=== PATIENT | male | born 1955 | race Caucasian/White ===

== ENCOUNTER → 2019-08-31 12:59 | Outpatient (BNVA) | payer MEDICARE, MEDICAID, SELFPAY | PROVIDERS: Family Provider Family Medicine; PCP Family Medicine; Visit Provider Specialist | DX: G40.009 Localization-related (focal) (partial) idiopathic epilepsy and epileptic syndromes with seizures of localized onset, not intractable, without status epilepticus (principal) | CPT/HCPCS: 99213 ==

== ENCOUNTER → 2020-03-05 12:16 | Outpatient (BNVA) | payer MEDICARE, MEDICAID, SELFPAY | PROVIDERS: Family Provider Family Medicine; PCP Family Medicine; Visit Provider Specialist | DX: G40.109 Localization-related (focal) (partial) symptomatic epilepsy and epileptic syndromes with simple partial seizures, not intractable, without status epilepticus (principal) | CPT/HCPCS: 99213 ==

== ENCOUNTER → 2020-08-28 12:18 | Outpatient (BNVA) | payer MEDICARE, MEDICAID, SELFPAY | PROVIDERS: Family Provider Family Medicine; PCP Family Medicine; Visit Provider Specialist | DX: G40.109 Localization-related (focal) (partial) symptomatic epilepsy and epileptic syndromes with simple partial seizures, not intractable, without status epilepticus (principal); F17.210 Nicotine dependence, cigarettes, uncomplicated | CPT/HCPCS: 99213 ==

== ENCOUNTER → 2021-10-22 07:56 | Outpatient (BNVA) | payer MEDICARE, MEDICAID, SELFPAY | PROVIDERS: Family Provider Family Medicine; PCP Family Medicine; Visit Provider Specialist | DX: G40.109 Localization-related (focal) (partial) symptomatic epilepsy and epileptic syndromes with simple partial seizures, not intractable, without status epilepticus (principal); J44.9 Chronic obstructive pulmonary disease, unspecified; R63.4 Abnormal weight loss; Z68.1 Body mass index [BMI] 19.9 or less, adult; F17.210 Nicotine dependence, cigarettes, uncomplicated | CPT/HCPCS: 99213; 99214 ==

== ENCOUNTER 2022-10-24 07:31 | Outpatient (CLI) | payer MEDICARE, MEDICAID, SELFPAY ==
--- NOTE | 2022-10-24 07:43 | CT_ITS ---
WS: [id number] LDCT LUNG CANCER SCREENING TECHNIQUE: Noncontrast CT of the chest with coronal and sagittal reformatted images. CLINICAL INFORMATION: NICOTINE DEPENDENCE, CIGARETTES COMPARISON: None. DLP: 87.40 mGy.cm DIvol: Mean CTDIvol: 1.60 (mGy) All CT scans at [facility] use at least one of these dose optimization techniques: automat ed exposure control; mA and/or kV adjustment per patient size (includes targeted exams where dose is matched to clinical indication); or iterative reconstruction. FINDINGS: Enlarged anterior mediastinal lymph nodes measuring up to 12 mm nonspecific. Normal caliber thoracic aorta. Aortic calcification. Coronary calcification. No axillary lymphadenopathy. Adrenal glands are normal. Irregular spiculated nodule in the RIGHT upper lobe medially and anteriorl y just above the hilum measuring approximately 12 mm. This has a suspicious appearance and recommend further evaluation with PET/CT. Additional spiculated nodule in the LEFT upper lobe posteriorly with central cavitation also has a suspicious appearance measuring 10 mm. Noncalcified nodule LEFT lung apex measuring 7 mm. Fibrotic changes in the lung apices bilaterally wi th subpleural opacities. Noncalcified nodule LEFT upper lobe medially measuring 3 mm. Noncalcified no dules LEFT lower lobe laterally measuring 5 mm and 6 mm. Subsegmental atelectasis in the LEFT lower l obe. Additional solid opacity LEFT lower lobe posteriorly measuring 8 mm. Patchy inflammatory infiltr ates in the RIGHT middle lobe. CT/CT lung screening [id number] IMPRESSION: 1. Numerous bilateral pulmonary nodules the most suspicious in the RIGHT upper lobe anteromedially with a spiculated appearance measuring 12 mm and LEFT uppe r lobe along the fissure measuring 10 mm. 2. Additional subcentimeter nodules the largest in the LEFT lower lobe measuri ng up to 8 mm. 3. Additional indeterminate anterior mediastinal lymphadenopathy measuring 12 to 13 mm. LUNG-RADS: 4B-Suspicious FOLLOW UP: PET/CT recommended
== END 2022-10-24 07:32 | disposition home or self-care (01) ==
PROVIDERS: PCP Family Medicine; Visit Provider Family Medicine
DX: Z12.2 Encounter for screening for malignant neoplasm of respiratory organs (principal); Z87.891 Personal history of nicotine dependence
CPT/HCPCS: 71271

== ENCOUNTER → 2022-11-19 14:09 | Outpatient (BNVA) | payer MEDICARE, MEDICAID, SELFPAY | PROVIDERS: PCP Family Medicine; Visit Provider Specialist | DX: G40.109 Localization-related (focal) (partial) symptomatic epilepsy and epileptic syndromes with simple partial seizures, not intractable, without status epilepticus (principal); F41.9 Anxiety disorder, unspecified; F32.A Depression, unspecified | CPT/HCPCS: 99213 ==

== ENCOUNTER 2023-01-17 05:41 | Outpatient (CLI) | payer MEDICARE, MEDICAID, SELFPAY ==
--- NOTE | 2023-01-17 | PETR_ITS ---
PROCEDURE INFORMATION: Exam: PET/CT Skull Base to Mid-thigh Exam date and time: 01/17/2023 8:59 AM Age: 67 years old Clinical indication: Abnormal findings; Abnormal CT lung screen 01/17/23; Additional info: Abnormal lung screen LABS AND CLINICAL REPORTS: Glucose: 98 mg/dl Treatment strategy for malignancy (PET staging): Initial Staging (PI) TECHNIQUE: Imaging protocol: Following at least four-hour fasting and following the injection of radiopharmaceutical, low dose CT images were obtained. Then, PET images were obtained. Attenuation corrected images were constructed using the CT scan. Fused images of PET and CT were reviewed. The standardized uptake values (SUV) reported below are maximum values within a region of interest, expressed in gm/ml. Exam includes orbital meatal line to mid-thigh. Radiopharmaceutical: 11.31 mCi F-18 FDG (Fluorodeoxyglucose), IV. Time of imaging post radiopharmaceutical administration: 1 hour Injection site: Left AC COMPARISON: CT lung screening [id number] 10/24/2022 7:48 AM and CTA head and neck from 07/11/2014 FINDINGS: Brain: Visualized brain has normal physiologic uptake. Pharynx: No abnormal uptake. Larynx: No abnormal uptake. Lungs, pleura and trachea: There is some low level FDG uptake associated with some scarring at the right lung apex with SUV max 2.1. This area appears relatively unchanged compared to CTA head neck from 07/11/2014. Hypermetabolic 1 cm left upper lobe pulmonary nodule has SUV max 2.8 (image 50). This previously measured up to 8 mm on 10/24/2022. Moderate centrilobular emphysema. Previously noted small area of faint spiculation in the right upper lobe has no associated FDG uptake. Heart: Normal physiologic uptake. Mediastinal space: No abnormal uptake. Liver: No abnormal uptake. Gallbladder and bile ducts: No abnormal uptake. Pancreas: No abnormal uptake. Spleen: No abnormal uptake. Adrenal glands: No abnormal uptake. Kidneys and ureters: Normal physiologic uptake. Stomach and bowel: No abnormal uptake. Vasculature: No abnormal uptake. Lymph nodes: Hypermetabolic 9 mm AP window lymph node has SUV max 3.2 (image 55). Hypermetabolic left hilar lymph node has SUV max 3.0 (image 64). Mildly prominent precarinal lymph node has SUV max 2.6 and measures up to 9 mm (image 56). There are also small calcified mediastinal and hilar lymph nodes. Bones/joints: No abnormal uptake in the visualized axial and appendicular skeleton. Soft tissues: See Lungs, pleura and trachea finding. [id number] IMPRESSION: Hypermetabolic 1 cm left upper lobe pulmonary nodule with FDG avid mediastinal and hilar lymph nodes is highly concerning for primary bronchogenic carcinoma.
== END 2023-01-17 05:42 | disposition home or self-care (01) ==
LOC: RAD 01-19 05:41
PROVIDERS: PCP Family Medicine; Visit Provider Family Medicine
DX: R91.8 Other nonspecific abnormal finding of lung field (principal); R91.1 Solitary pulmonary nodule
CPT/HCPCS: 78815; A9552

== ENCOUNTER → 2023-02-17 16:40 | Outpatient (BNVA) | payer MEDICARE, MEDICAID, SELFPAY | PROVIDERS: PCP Family Medicine; Visit Provider Internal Medicine Pulmonary Disease | DX: R91.8 Other nonspecific abnormal finding of lung field (principal); J44.9 Chronic obstructive pulmonary disease, unspecified; F17.210 Nicotine dependence, cigarettes, uncomplicated; Z86.73 Personal history of transient ischemic attack (TIA), and cerebral infarction without residual deficits | CPT/HCPCS: 36415; 99204 ==

== ENCOUNTER 2023-04-06 07:47 | Outpatient (CLI) | payer MEDICARE, MEDICAID, SELFPAY ==
--- NOTE | 2023-04-06 08:00 | CT_ITS ---
WS: [id number] CT CHEST TECHNIQUE: Noncontrast CT of the chest with coronal and sagittal reformatted images. CLINICAL INFORMATION: F/u pulmonary nodule COMPARISON: PET/CT 01/17/2023. CT lung screening 10/24/2022 DLP: 337.[address] scans at [facility] use at least one of these dose optimization techniques: automated e xposure control; mA and/or kV adjustment per patient size (includes targeted exams where dose is matc hed to clinical indication); or iterative reconstruction. FINDINGS: Previously described 10 mm LEFT upper lobe FDG avid pulmonary nodule demonstrates more cent ral cavitation today but otherwise unchanged in appearance. Previously described prominent mediastina l and hilar lymph nodes are unchanged. Additional subcentimeter scattered nodules are unchanged compared to previous. Subsegmental atelectasis LEFT lower lobe. Moderate chronic emphysematous changes. Aortic calcificatio n. No axillary lymphadenopathy. Adrenal glands are normal. No other significant changes. Fibrosis in the lung apices. IMPRESSION: 1. Previously described 10 mm FDG avid nodule LEFT upper lobe demonstrates more central cavitation t leslye but otherwise unchanged. Recommend continued surveillance with 3-month follow-up. 2. Additional scattered subcentimeter pulmonary nodules are stable. 3. Previously described FDG-avid anterior mediastinal and hilar lymph nodes are stable in appearance . 4. No other significant changes compared to previous.
== END 2023-04-06 07:48 | disposition home or self-care (01) ==
PROVIDERS: PCP Family Medicine; Visit Provider Internal Medicine Pulmonary Disease
DX: R91.1 Solitary pulmonary nodule (principal)
CPT/HCPCS: 71250

== ENCOUNTER → 2023-04-13 08:08 | Outpatient (BNVA) | payer MEDICARE, MEDICAID, SELFPAY | PROVIDERS: PCP Family Medicine; Visit Provider Internal Medicine Pulmonary Disease | DX: J44.9 Chronic obstructive pulmonary disease, unspecified (principal); R91.8 Other nonspecific abnormal finding of lung field; F17.210 Nicotine dependence, cigarettes, uncomplicated | CPT/HCPCS: 99214 ==

== ENCOUNTER 2023-04-29 07:00 | Outpatient (CLI) | payer MEDICARE, MEDICAID, SELFPAY ==
[2023-04-29 07:23] VITALS: PULSE 73; RESP 20; O2SAT 98
[2023-04-29] MEDS: albuterol 2.5 mg/3 mL Neb INHALATION (07:26)
[2023-04-29 07:27] VITALS: PULSE 71
== END 2023-04-29 07:01 | disposition home or self-care (01) ==
PROVIDERS: PCP Family Medicine; Visit Provider Internal Medicine Pulmonary Disease
DX: R91.1 Solitary pulmonary nodule (principal)
CPT/HCPCS: 94060; 94618; 94726; 94729; 99214; J7613

== ENCOUNTER 2023-07-06 07:11 | Outpatient (CLI) | payer MEDICARE, MEDICAID, SELFPAY ==
--- NOTE | 2023-07-06 07:30 | CT_ITS ---
WS: [id number] CT CHEST TECHNIQUE: Noncontrast CT of the chest with coronal and sagittal reformatted images. CLINICAL INFORMATION: 3 month f/u COMPARISON: CT 04/06/2023 and PET/CT 01/17/2023 DLP: 334.[address] scans at [facility] use at least one of these dose optimization techniques: automated e xposure control; mA and/or kV adjustment per patient size (includes targeted exams where dose is matc hed to clinical indication); or iterative reconstruction. FINDINGS: Previously described 10 mm LEFT upper lobe FDG avid pulmonary nodule demonstrates slightly more gem tral cavitation today but otherwise stable compared to 04/06/2023. Previously described prominent mediastinal and hilar lymph nodes are unchanged. Additional subcentime ter scattered nodules are unchanged compared to previous. Fibrosis in the lung apices. Slight subsegmental atelectasis LEFT lower lobe. Moderate chronic emphysematous changes. Aortic calci fication. No axillary lymphadenopathy. Adrenal glands are normal. Tiny esophageal hiatal hernia. No o ther significant changes. IMPRESSION: 1. Previously described 10 mm FDG avid nodule LEFT upper lobe demonstrates slightly more central cav itation today but otherwise unchanged. Recommend 6-month follow-up. 2. Additional scattered subcentimeter pulmonary nodules are stable. 3. Previously described FDG-avid anterior mediastinal and hilar lymph nodes are stable in appearance . 4. No other significant changes compared to previous
== END 2023-07-06 07:12 | disposition home or self-care (01) ==
LOC: RAD 07:11
PROVIDERS: PCP Family Medicine; Visit Provider Internal Medicine Pulmonary Disease
DX: R91.1 Solitary pulmonary nodule (principal); R91.8 Other nonspecific abnormal finding of lung field
CPT/HCPCS: 71250

== ENCOUNTER → 2023-07-13 07:47 | Outpatient (BNVA) | payer MEDICARE, MEDICAID, SELFPAY | PROVIDERS: PCP Family Medicine; Visit Provider Internal Medicine Pulmonary Disease | DX: R91.1 Solitary pulmonary nodule (principal); J43.2 Centrilobular emphysema; J44.9 Chronic obstructive pulmonary disease, unspecified; F17.210 Nicotine dependence, cigarettes, uncomplicated | CPT/HCPCS: 99214 ==

== ENCOUNTER 2023-09-29 08:57 | Outpatient (CLI) | payer MEDICARE, MEDICAID, SELFPAY ==
--- NOTE | 2023-09-29 09:30 | PETR_ITS ---
PROCEDURE INFORMATION: Exam: PET/CT Skull Base to Mid-thigh Exam date and time: 09/29/2023 10:07 AM Age: 68 years old Clinical indication: Abnormal findings; 1. Previously described 10 mm fdg avid nodule left upper lobe demonstrates slightly more central. Cavitation today but otherwise unchanged. Recommend 6-month follow-up. ; Additional info: Lung nodule LABS AND CLINICAL REPORTS: Glucose: 109 mg/dl Treatment strategy for malignancy (PET staging): Initial Staging (PI) TECHNIQUE: Imaging protocol: Following at least four-hour fasting and following the injection of radiopharmaceutical, low dose CT images were obtained. Then, PET images were obtained. Attenuation corrected images were constructed using the CT scan. Fused images of PET and CT were reviewed. The standardized uptake values (SUV) reported below are maximum values within a region of interest, expressed in gm/ml. Exam includes orbital meatal line to mid-thigh. Radiopharmaceutical: 11.73 mCi F-18 FDG (Fluorodeoxyglucose), IV. Time of imaging post radiopharmaceutical administration: 1 hour COMPARISON: 1. [facility] [id number] 01/17/2023 8:[address] head from 12/25/2014 FINDINGS: Brain: Decreased FDG uptake in the left MCA territory, consistent with prior infarct. Pharynx: No abnormal uptake. Larynx: No abnormal uptake. Lungs, pleura and trachea: Increased FDG uptake within the suspicious left upper lobe pulmonary nodule, now with SUV max 5.5, previously 2.8. This has also increased in size, now measuring 1.2 x 1.4 cm, previously 1.0 x 1.0 cm. Similar area of scarring at the right lung apex without increased FDG uptake. Background of emphysema. Heart: Normal physiologic uptake. Mediastinal space: No abnormal uptake. Liver: No abnormal uptake. Gallbladder and bile ducts: No abnormal uptake. Pancreas: No abnormal uptake. Spleen: No abnormal uptake. Adrenal glands: No abnormal uptake. Kidneys and ureters: Normal physiologic uptake. Stomach and bowel: No abnormal uptake. Vasculature: No abnormal uptake. Lymph nodes: Mildly hypermetabolic left hilar lymphadenopathy has SUV max 2.6. Mildly hypermetabolic 1 cm left paratracheal lymph node has SUV max 3.0. Some of the mediastinal and hilar lymph nodes are calcified. Bones/joints: No abnormal uptake in the visualized axial and appendicular skeleton. Soft tissues: Small fat containing left inguinal hernia. [facility] [id number] IMPRESSION: 1. Increased size and FDG uptake within the suspicious left upper lobe pulmonary nodule, again most consistent with primary bronchogenic carcinoma. 2. Mildly hypermetabolic left hilar and mediastinal lymph nodes are indeterminate.
== END 2023-09-29 08:58 | disposition home or self-care (01) ==
LOC: RAD 08:57
PROVIDERS: PCP Family Medicine; Visit Provider Internal Medicine Pulmonary Disease
DX: R91.1 Solitary pulmonary nodule (principal)
CPT/HCPCS: 78815; A9552

== ENCOUNTER → 2023-11-12 08:01 | Outpatient (BNVA) | payer MEDICARE, MEDICAID, SELFPAY | PROVIDERS: PCP Family Medicine; Visit Provider Internal Medicine Pulmonary Disease | DX: R91.1 Solitary pulmonary nodule (principal); J43.2 Centrilobular emphysema; J44.9 Chronic obstructive pulmonary disease, unspecified; F17.210 Nicotine dependence, cigarettes, uncomplicated | CPT/HCPCS: 99214 ==

== ENCOUNTER → 2023-11-25 14:08 | Outpatient (BNVA) | payer MEDICARE, MEDICAID, SELFPAY | PROVIDERS: PCP Family Medicine; Visit Provider Specialist | DX: G40.109 Localization-related (focal) (partial) symptomatic epilepsy and epileptic syndromes with simple partial seizures, not intractable, without status epilepticus (principal); F41.9 Anxiety disorder, unspecified; F32.A Depression, unspecified | CPT/HCPCS: 99213 ==

== ENCOUNTER 2023-12-01 10:14 | Day surgery (SDC) | payer MEDICARE, MEDICAID, SELFPAY ==
[2023-12-01] VITALS (8 sets, daily range): BP systolic 100–123; BP diastolic 49–79; PULSE 70–78; RESP 18; TEMP 36.1–36.3; O2SAT 92–97; BMI 22.3
--- NOTE | 2023-12-01 10:29 | CT_ITS ---
WS: [id number] CT chest ION (PULM ONLY) [id number] HISTORY: For bronchoscopic biopsy TECHNIQUE: Axial imaging per protocol prior to ION. CONTRAST: None DLP: 366.15 mGy COMPARISON: 07/06/2023 Hyperexpanded lungs with emphysema. Biapical pleural thickening. Reidentified is the enlarging spicul ated mass in the LEFT upper lobe which abuts the fissure. Mass is increased in size now measuring 1.8 x 1.8 cm with additional pleural tagging and extensions. Bilateral lower lobe bronchiectasis. CT/CT chest ION (PULM ONLY) [id number] IMPRESSION: Chest CT for ION planning.
--- NOTE | 2023-12-01 11:31 | W.PM.OPSUD ---
Surgery/Procedure H&P Update DATE OF PROCEDURE: December 01, 2023 DATE H&P PERFORMED: 11/12/23 H&P UPDATE INFORMATION: I have reviewed H&P completed within last 30 days, I have examined patient prior to procedure and No changes to prior documentation CHANGES TO PREVIOUS DOCUMENTATION: none PRIMARY INDICATION FOR PROCEDURE: Need tissue diagnosis PET active left upper lobe nodule - Suspicious for primary lung malignancy- PLANNED PROCEDURE: Operation Date: 12/01/23 12:25 Proposed Procedures p Ion Robotic Assisted Bronchoscopy ION 75030, 00275, 39928, 05526, 43128, 31907, 09912, 77991, 42961, 49038, 91730, 67439, 65281, 11377](Not Applicable) - Prakash Burton MD s Ebus(Not Applicable) - Prakash Burton MD
[2023-12-01] MEDS: sodium chloride 0.9% 1,000 ML 30 ML IV (11:35)
--- NOTE | 2023-12-01 12:17 | ANES.PREANE2 ---
Pre-Anesthetic Assessment Height/Weight: Height 1.73 m Weight 66.678 kg Temp Pulse Resp BP Pulse Ox O2 Del Method 97.3 F L 75 18 107/73 97 Room Air 12/01/23 11:17 12/01/23 11:17 12/01/23 11:17 12/01/23 11:17 12/01/23 11:17 12/01/23 11:17 Operation Date: 12/01/23 12:25 Proposed Procedures p Ion Robotic Assisted Bronchoscopy ION 65924, 63065, 57871, 05050, 19964, 33752, 42116, 13415, 69494, 40788, 21818, 04057, 40015, 79805](Not Applicable) - Prakash Burton MD s Ebus(Not Applicable) - Prakash Burton MD Familial anesthetic complications: None Was Beta Shahzad taken within 24 hours: N/A Was Clonidine taken within 24 hours: N/A Last intake: Intake Last Liquid Date 12/01/23 Last Liquid Time 07:30 Last Solid Date 11/30/23 Last Solid Time 18:30 Social Tobacco and No alcohol Exam alert, oriented x 3, clear to auscultation bilaterally and regular rate & rhythm Airway Mallampati: Class III Comments: Comments: Extremely poor dentition, rotting, bottom teeth sharp appearing hatch GI Gastroesophageal Reflux Disease Metabolic Thyroid Disease Neuropsych seizure Anesthetic Plan ASA status: 3 Anesthesia: General Risk of > 500 ml blood loss (7ml/kg in children): No Medications/Allergies Home Medications Medication Instructions Recorded Confirmed Last Taken Type furosemide 20 mg tablet (Lasix) 20 mg PO PRN PRN Edema 08/31/19 12/01/23 11/30/23 History levothyroxine 25 mcg capsule 25 mcg PO DAILY 08/31/19 12/01/23 12/01/23 History simvastatin 40 mg tablet 40 mg PO DAILY 08/31/19 12/01/23 11/30/23 History tramadol 50 mg tablet 50 mg PO Q6H PRN Pain 08/31/19 12/01/23 11/30/23 History pantoprazole 40 mg PO DAILY 11/19/22 12/01/23 11/30/23 History shower chair #1 ea 11/19/22 11/25/23 Unknown Rx albuterol (refill) 90 90 mcg inhalation PRN PRN 02/17/23 11/26/23 Unknown History mcg/actuation aerosol inhaler Shortness Of Breath buspirone 15 mg tablet 15 mg PO BID 02/17/23 11/26/23 11/26/23 History diphenhydramine HCl 25 mg capsule 25 mg PO TID PRN Allergy Symptoms 02/17/23 11/26/23 Unknown History (Allergy (diphenhydramine)) donepezil 5 mg tablet 5 mg PO DAILY 02/17/23 11/26/23 11/26/23 History olanzapine 5 mg tablet (Zyprexa) 5 mg PO DAILY 02/17/23 12/01/23 11/30/23 History umeclidinium 62.5 mcg/actuation 1 inh inhalation DAILY 02/17/23 12/01/23 11/30/23 History blister powder for inhalation (Incruse Ellipta) clopidogrel 75 mg tablet 75 mg PO DAILY 11/26/23 11/26/23 11/25/23 History levetiracetam 500 mg tablet 1,000 mg PO BEDTIME 12/01/23 12/01/23 11/30/23 History triamcinolone acetonide 0.1 % 1 applic topical BID 12/01/23 12/01/23 11/30/23 History topical cream Allergies Allergy/AdvReac Type Severity Reaction Status Date / Time codeine AdvReac nausea Verified 11/26/23 09:02 vomiting Current Medications Generic Name Dose Route Start Last Admin Trade Name Freq PRN Reason Stop Dose Admin Sodium Chloride 1,000 mls @ 30 mls/hr 12/01/23 10:30 12/01/23 11:35 Sodium Chloride 0.9% IV 12/02/23 10:29 30 mls/hr .Q24H ILENE Administration PFSH Anesthesia Family History Other Cancer Hypertension Stroke Denies family history of Diabetes CAD (coronary artery disease) Social History Smoking and tobacco/nicotine status: current every day tobacco/nicotine user (4-6 a day) cigarettes Packs smoked per day: 1.5 Years cigarettes smoked: 55 [ Other cigarette details: Started at age 12] Alcohol intake: current Alcohol intake frequency: 0-2 Drinks per Day Alcohol type: beer Substance/Drug Use: never Data Anesthesia Cardiac Studies: No Data to Display
--- NOTE | 2023-12-01 12:31 | SC_ITS ---
WS: [id number] C-arm fluoroscopy for left upper lobe bronchoscopy, 12/01/2023 Clinical Data: ION Comparison: CT chest, 12/01/2023 Findings: Dr. Bennett biopsied a left upper lobe nodule. The bronchoscope showed the distal tip in the left uppe r lobe. SC/C-arm FL for Bronchoscopy Impression: C ARM fluoroscopy guidance for left upper lobe bronchoscopy.
[2023-12-01] MEDS: lidocaine 1% INJ 10 mL (per mL) XX (13:26)
[2023-12-01 14:41] LABS: Cyto Order Verification No Order
--- NOTE | 2023-12-01 14:45 | P.OP_ITS ---
Operative Report Date of procedure: December 01, 2023 Pre-op diagnosis: Left upper lobe PET active lesion suspicious for malignancy Post-op diagnosis: Same Surgeon: Prakash Burton MD Brief History: Mr. Waldemar Barrera is a 68-year-old male with past medical history of COPD, anxiety, CVA with right-sided paresis and slurry speech comes for eval and treat lung mass per Dr. Lovell. He comes to clinic with his son.smoked 1 pack a day for > 40 years and currently smoking less than a pack As part of lung cancer screening protocol patient had a low-dose CT 10/24/2022 which showed numerous bilateral pulmonary nodules most suspicious RUL anterior medially with spiculated appearance measuring 12 mm in left upper lobe along the fissure measuring 10 mm. There were additional subcentimeter nodules largest left lower lobe measuring 8 mm. Indeterminate anterior mediastinal lymphadenopathy measuring 12 to 13 mm. Patient had a PET CT scan 01/17/2023- 1.low-level FDG in right lung apex with SUV 2.1 consistent with scarring. This area is unchanged when compared to CT head and neck 07/11/2014. 2. Cavitary left upper lobe 1 cm hypermetabolic 1 cm nodule SUV max 2.8.- Reported suspicious for malignancy but uptake is not significant 3. FDG avid mediastinal and hilar lymph nodes. AP window lymph node SUV max 3.2 and left hilar lymph node SUV max 3. nodify blood test showed reduced risk. [address] scan 04/06/23 ?Previously described 10 mm mildly FDG avid nodule LEFT upper lobe demonstrates more central cavitation today but otherwise unchanged. Recommend continued surveillance with 3-month follow-up. Previously described FDG-avid anterior mediastinal and hilar lymph nodes are stable in appearance. A 3-month follow-up CT chest 07/06/2023-unchanged 10 mm left upper lobe lesion with more central cavitation. Repeated a 3-month follow-up PET/CT on 09/28/2023-which showed increased the size and FDG uptake within the left upper lobe pulmonary nodule was consistent with primary bronchogenic carcinoma. Size increased from 1.0 x 1.0 cm to 1.2 x 1.4 cm with SUV 5.5. (Increased from 2.8 in December 2022); there is mild hypermetabolic left hilar lymphadenopathy with SUV 2.6. 1 cm left paratracheal lymph node SUV max 3.0 I have discussed with patient and his son that given significant smoking history-the lesion in the lung is highly suspicious for malignancy and we need tissue diagnosis to confirm. For that I have given the option of going for robotic navigational guided biopsy of suspicious lesion as well as endobronchial ultrasound-guided surveillance of hilar/mediastinal lymph nodes. I have explained about the complications like pneumothorax given her significant background emphysema which may require chest tube placement. Bleeding is another possibility, majority of times the bleeding is controlled with instillation of cold saline or diluted epinephrine but extremely rarely to bleeding may not be well controlled, which may result in prolonged intubation and possibly bronchial don placement to protect nonbleeding airway, convalescence in ICU, may even need IR embolization. There is also a very small chance of missing the lesion due to technical factors which may result in repeating the procedure or follow-up with surveillance CT scans. These are rare possibilities with current software combined with using live radial ultrasound,.. Patient verbalized understanding for the indication of the procedure, nature of the procedure, alternatives, complications, benefits and agreed to proceed. Instructed patient to stop clopidogrel 5 days prior to the procedure. Today comes for robotic navigational bronchoscopy guided biopsy of left upper lobe cavitary lesion as well as EBUS guided hilar/mediastinal lymph node biopsies. Procedure: -Dx Bronchoscope w/Washings or airway inspection -Dx Bronchoscope w/BAL -Bronch with computer image guided Navigational Bronchoscopy -Bronchoscopy w/Transbronchial lung biopsy(s), single lobe using forceps -Bronchoscopy w/Transbronchial needle aspiration biopsy(s), tracheal, main stem, and/or lobar bronchus -Bronchoscopy w/ therapeutic aspiration of the tracheobronchial tree (clearance of airway secretions, removal of mucus plugs) -EBUS Sampling 1/2 nodes ION ROBOTIC BRONCHOSCOPY NOTE Pre-procedure Verification: Prior to the procedure, the patient's identity was verified by full name, date of and medical record number. The patient's identity was verified on all pertinent medical records. Also prior to the procedure, a History and Physical was performed, and patient medications, allergies and sensitivities were reviewed. The patient's tolerance of previous anesthesia was reviewed. The risks and benefits of the procedure and the sedation options and risks were discussed with the patient. All questions were answered and informed consent was obtained. Planning: Using the [employer] planning software, this patient?s preoperative CT was loaded onto the system and then target and pathway mapping was performed. This was all done prior to the start of the procedure and appropriate plan verified prior to induction. Anesthesia: General anesthesia was used. Please see anesthesiology documentation for full details. A modified BAM/Marques Protocol was used for robotic bronchoscopy with rapid Intubation, recruitment maneuvers, Tidal Volume around 8-10mL/Kg [place] Body Weight, and PEEP 10-15 as feasible. Time-Out: Prior to the start of the procedure, the patient's identification, proposed procedure, accurate signed consent, correctly labeled images and recor ds, and need for prophylactic antibiotics were verified by the physician, the nurse, the anesthesiologist and the front desk team member in the procedure room. Procedural Details: After obtaining informed consent, The procedure was accomplished without difficulty. The patient tolerated the procedure well. Patient preparation: Patient was placed under general anesthesia. An 8.5 ETT was placed for bronchoscopy. The larynx and vocal cords were not visualized. The trachea was anatomically normal The right sided was anatomically normal without endobronchial lesions. There were significant thin clear secretions. The left sided airway was anatomically normal without endobronchial lesions. There were significant thin clear secretions Therapeutic aspiration of the airways, initial encounter, was performed at the right bronchial tree. The therapeutic bronchoscope was then removed. We communicated with the anesthesia team to ensure proper ventilator settings for optimal peripheral bronchoscopy. FIRST LOBE: The Ion Shape Sensing Robotic Assisted Bronchoscope was brought into the field and the process of registration was carried out. The guide catheter was used for peripheral navigational bronchoscopy using the planned pathway into the posterior apical segment of left upper lobe and was able to be wedged peripherally at a distance of 1 mm away from the target. We locked the catheter position in, and removed the vision probe. We introduced the radial EBUS probe and obtained an radial vague concentric signal [id number] image location relative to the lesion in the same lobe. We confirmed our location with a fluoroscopic C-arm. We then removed the R-EBUS and introduced the biopsy tools starting with a 23 G ION bronchoscopic peripheral needle for Transbronchial Needle Aspirations (TBNA). The first pass was not sent for Rapid On Site Evaluation (MK) as we do not have onsite pathology. We continued more biopsies in a cloud format. Transbronchial biopsies of left upper lobe lesion were using forceps. Transbronchial biopsy technique was selected because the sampling site was not visible endoscopically. The sampling device penetrated the full thickness of the bronchial wall to obtain the biopsy of lung tissue. 7 biopsy passes were performed, and the same number of biopsy samples were obtained. Finally, we used a 20 cc syringe filled with normal saline connected to the proximal portion of the ION catheter and slowly injected; the return was cloudy and blood tinged 13 cc . At this point and after confirming the absence of bleeding, we removed the channel. Minimal blood residue was cleared from the airway and the peripheral navigation portion of the procedure was concluded. Empiric cold saline was instilled through the catheter and tamponade held for 1-5 minutes. At this point and after confirming the absence of bleeding, we removed the channel. Minimal blood residue was cleared from the airway and the peripheral navigation portion of the procedure was concluded. Empiric cold saline was instilled through the catheter and tamponade held for 1-5 minutes. Next, we turned our attention to linear EBUS staging. An EBUS exam was performed: Identified a large hypoechoic mass in station station 4L, station 7,. Using 21 G lower lobe [id number] were taken from all the stations; there was some evidence of bleeding which is controlled with instillation of cold saline. Rapid onsite path evaluation (MK) was not utilized for this case. Following completion of all diagnostic and therapeutic procedures, hemostasis was verified. The scope was removed and procedure concluded. Samples: A. Left upper lobe lesion 1. Total of 6 passes were made using needle aspiration ; we do not have onsite pathology and so all the material was placed in formalin for histopathology 2. Targeting the same area 6 passes were made using forceps ; we do not have onsite pathology and so all the material was placed in formalin for histopathology 3. Bronchoscope was wedged at the entrance of the posterior apical segment of left upper lobe, 20 mL of saline was instilled and returned 13 mL of bronchoalveolar lavage . The fluid was mixed with blood and specks of tissue. Samples for cell count, cytology, cultures B. EBUS guided Fine-needle aspiration biopsies were taken from station station 7 and station 4L 1. Total of 3 passes were made using needle aspiration from station 7; all the material was placed in formalin and sent for histopathology 2. Total of 3 passes were made using needle aspiration from station 4L; all the material was placed in formalin and sent for histopathology; Complications: None.The patient was extubated and brought to the PACU in stable condition. Disposition: Patient can be discharged home in stable condition. Pt and her son are aware that I am going to call them to update final biopsy results once available.
--- NOTE | 2023-12-01 14:48 | XR_ITS ---
WS: [id number] CHEST XRAY TECHNIQUE: Portable chest. CLINICAL INFORMATION: POST ION COMPARISON: None. FINDINGS: Heart: Normal cardiac silhouette. Aortic calcification. Lungs: Chronic emphysematous changes. No acute pulmonary infiltrates. No pneumothorax. Fibrosis in th e lung apices. LEFT upper lobe nodule better visualized on the prior CT Bones: Osteopenia. XR/XR chest 1V portable [id number] IMPRESSION: No pneumothorax. Normal for post bronchoscopy purposes.
[2023-12-01 15:03] LABS: Apprearance, Bronch Wash Hazy (CLEAR); Color, Bronc Wash Slight Pink
--- NOTE | 2023-12-01 15:10 | ANE.PACU2 ---
Inpatient post-anesthesia follow up: Airway intact: Yes Vital signs: Temperature 97 F Pulse Rate 71 Respiratory Rate 18 Blood Pressure 123/67 Pulse Oximetry 93 Oxygen Delivery Me thod Room Air Oxygen Flow Rate Fraction of Inspir ed Oxygen Hydration adequate: Yes Nausea and vomiting: No Pain level: 1 Mental status: Baseline
[2023-12-01 15:33] LABS: Total Cells Counted Bronch 200
[2023-12-01 15:34] LABS: PATH Referral Yes
== END 2023-12-01 15:58 | disposition home or self-care (01) ==
PROVIDERS: PCP Family Medicine; Visit Provider Internal Medicine Pulmonary Disease
PROC: 0BJ08ZZ Inspection of Tracheobronchial Tree, Via Natural or Artificial Opening Endoscopic (ICD-10-PCS; CPT 31622; principal; 2023-12-01 12:05)
PROC: BB4BZZZ Ultrasonography of Pleura (ICD-10-PCS; 2023-12-01 12:05)
DX: R91.8 Other nonspecific abnormal finding of lung field (principal); J43.2 Centrilobular emphysema; F41.9 Anxiety disorder, unspecified; I69.351 Hemiplegia and hemiparesis following cerebral infarction affecting right dominant side; K21.9 Gastro-esophageal reflux disease without esophagitis; F17.210 Nicotine dependence, cigarettes, uncomplicated
CPT/HCPCS: 31624; 31627; 31628; 31629; 31645; 31652; 71045; 71250; 76000; 80503; 87070; 87205; 88305; 89050; J1100; J2405; J2704; J3010; J3490; J7030

== ENCOUNTER 2023-12-17 13:56 | Oncology outpatient (recurring) (ONCR) | payer MEDICARE, MEDICAID, SELFPAY ==
--- NOTE | 2023-12-17 14:52 | N.ONRAD NP_ITS ---
Radiation Oncology New Patient Visit Patient: Waldemar Barrera MR#: [id number] : 1955 Age: 68 Sex: Male Dictated by: Dr. Ale Bennett Date of Service: 12/17/2023 Referring Physician(s) : Dr. Burton Diagnosis: Solitary pulmonary nodule biopsy nonspecific Radiotherapy to date: Summary > No prior radiation therapy. Chief Complaint / History of Present Illness: Patient is 68-year-old gentleman with significant COPD who has been undergoing screening for approximately a year. He had his first CT screening in September 2022. His initial screening was in September 2022. The results of the scan showed numerous bilateral pulmonary nodules. The most suspicious was a 12 mm in the right upper lobe and the second most suspicious was a 10 mm in the left upper lobe. He also had indeterminate mediastinal adenopathy. He underwent a PET scan in December 2022. The PET scan showed a 1 cm left upper lobe nodule with SUV uptake significant for malignancy no other areas were noted to have any uptake. This was followed with an additional CT scan in March 2023. This showed a 10 mm left upper lobe nodule. It appeared to have a little more cavitation. Everything else was stable. Additional CT was done in June. This showed the 10 mm left upper lobe with slightly more cavitation and no other changes. In September 2023 he had another PET scan which showed increased size and uptake in the left upper lobe nodule. It now had an SUV of 5.5 where previously had been 2.8. It also had increased in size from a 10 mm to a 12 x 14 mm. These changes prompted a biopsy which was done in November of this year. The biopsy unfortunately was nondiagnostic. There was concern about trying to do additional biopsies with the risk of pneumothorax and patient is significantly compromised with COPD. He is here today to discuss the possible options available. Current Medications: Allergies: Codeine causes nausea and vomiting Medical History: COPD, anxiety, CVA with right-sided paresis, slurred speech, continued tobacco use, PFT FEV1 1.49 L no history of collagen vascular disease. No previous radiation therapy. Surgical History: Family History: He does have family history of cancer and stroke Social History: He continues to smoke every day. He has no alcohol intake. Current Complaints / Review of Systems: . He is currently without complaints Vital Signs: Performed on 12/17/2023 2:13 PM BMI - 22.199 kg/m2, Height - 68 in, Weight - 146 lbs, Temperature - 97.4 f, Pulse - 81 /min, Respiration - 16 /min, O2 Sat - 97 %, Pain - 0, Fatigue - 0 and BP - 123/ 76 mm(hg). Physical Exam: General: Patient is in no apparent distress. He is accompanied by his son. HEENT: Normocephalic atraumatic. Pupils are equal sclera clear, extraocular muscles intact. The right side of his face has a noticeable droop. His speech is slurred and often his words are not consistent with what he is trying to say. Pulmonary: Respiratory rate is regular nonlabored Cardiovascular: Regular rate and rhythm Abdomen: Patient is fairly thin with minimal adipose tissue Extremities: No obvious gross edema is noted Skin: Warm and dry without bruising Neurological: He has a obvious right sided drooping of his face. He otherwise also has a slurred speech. He is alert and oriented. He is able to walk. Psych: Affect appropriate for current situation Performance Status: 80 Pathology: Lab: Imaging: See HPI Impression: Solitary pulmonary nodule in a patient with significant COPD Plan: I reviewed with the patient the findings on his PET scan and how the PET scan is a metabolic scan. It is shown a change in the uptake which corresponds with activity. We talked about how his mass is still very small at 1.2 to 1.4 cm in size. I reviewed with him the danger of additional biopsies with his COPD. We discussed how the typical course for most patients when they have small lung cancers is to undergo stereotactic radiosurgery and then have repeat scans down the line. As other lesions show up additional therapy can be given. We talked about the simulation process. We reviewed the daily treatment regiment of 4 treatments over a course of a week. We discussed the risks and side effects both acute and long-term. We talked about how we do not have an actual tissue biopsy but secondary to the risk of additional biopsies we often will proceed with treatment with the understanding that the PET scan has shown as an increase in activity which is consistent with malignancy. Both he and his son verbalized understanding of this. I offered to them a repeat scan in 3 months or proceeding with treatment at this time. At this point they will consider the options. All of their questions were answered. They will call next week and let us know what they would like to do. Signed by: 12/17/2023 2:51:15 PM <<Signature on File>> Time spent with patient:45 CPT Code: CPT Code:
== END 2023-12-25 23:59 | disposition home or self-care (01) ==
PROVIDERS: PCP Family Medicine; Visit Provider Radiology Radiation Oncology
DX: R91.8 Other nonspecific abnormal finding of lung field (principal)
CPT/HCPCS: 99205

== ENCOUNTER 2024-03-24 08:12 | Oncology outpatient (recurring) (ONCR) | payer MEDICARE, MEDICAID, SELFPAY ==
--- NOTE | 2024-03-10 07:30 | CT_ITS ---
WS: [id number] CT chest w con* [id number] HISTORY: repeat ct, no tx, history of lung cancer. TECHNIQUE: Axial imaging performed through the thorax. Coronal and sagittal reformats are submitted. All CT scans at [facility] use at least one of these dose optimization techniques: automated exposure control; mA and/or kV adjustment per patient size (includes targeted exams where dose is mat ched to clinical indication); or iterative reconstruction. CONTRAST: Omnipaque 350; 100 mL IV. DLP: 345.52 mGy.cm COMPARISON: 12/01/2023, 07/06/2023, PET/CT 09/29/2023 Lungs and central airway: Known pulmonary neoplasm in the LEFT upper lobe abuts the fissure has sligh tly increased in size. There is a low-attenuation mass with central necrosis measuring 2.2 x 2.4 x 2. 6 cm. Mass continues to increase in size. There is mild interstitial extension from the known neoplas m. No new additional nodules are identified. Bronchiectasis in the lower lung cazares, LEFT greater th an RIGHT. Bronchial wall thickening extending into the lower lobes. Pleura: Normal. No pleural effusion. Heart and pericardium: Normal size heart with no pericardial effusion. Mediastinum and didi: Mediastinal and hilar lymph nodes are mildly enlarged. These lymph nodes were i ndeterminate on the most recent PET/CT. Subcarinal lymph node is 1.6 cm which appears slightly more p rominent than on prior studies. There is additional increasing soft tissue at the LEFT hilum which is suspicious for metastatic adenopathy. The precarinal and paratracheal lymph nodes not changed. Vessels: Mild atherosclerosis aorta. No aneurysm. Normal size pulmonary artery. Chest wall and lower neck: No soft tissue masses. Upper abdomen: Small hiatal hernia. No adrenal mass. Visualized liver is negative. Osseous structures: No destructive process. CT/CT chest w con* [id number] IMPRESSION: 1. Slight increase in size of the known LEFT upper lobe pulmonary neoplasm now measuring 2.2 x 2.4 x 2.6 cm. 2. Slightly more prominent subcarinal and LEFT hilar lymph nodes. Metastatic d isease is not excluded. Mildly hyperbolic lymph nodes were previously described at the LEFT hilum by PET/CT. 3. Chronic emphysema with bilateral lower lobe bronchiectasis and bronchial th ickening.
[2024-03-10 08:05] LABS: Blood Urea Nitrogen 5 mg/dL (8-23); Glomerular Filtration Rate 111.5 mL/min (90-130)
[2024-03-10] MEDS: iohexol 350 mg/mL 500 mL Btl (per mL) IV (08:20)
--- NOTE | 2024-03-14 09:51 | ONCRAD EPV_ITS ---
Radiation Oncology Established Patient Visit Patient: Waldemar Barrera [id number] : 1955 Age: 68 Sex: Male> Dictated by: Dr. Ale Bennett Date of Service: 03/14/2024 Referring Physician(s) : Diagnosis: Non-small cell carcinoma of the lung Radiotherapy to Date: None today Current History: Patient returns today for the results of his CT scan. The mass in his lung had gone from 1.8 x 1.8 cm to 2.4 x 2.6 cm. He had no changes in respiratory status or other new issues Current Medications: Allergies: Current Complaints / Review of Systems: . Vital Signs: Performed on 03/14/2024 8:24 AM BMI - 22.017 kg/m2, Height - 68 in, Weight - 144.8 lbs, Temperature - 96.6 f, Pulse - 80 /min, Respiration - 16 /min, O2 Sat - 97 %, Pain - 0, Fatigue - 0 and BP - 112/ 72 mm(hg). Performance Status: 90 Lab: None pending. Pathology: Imaging: See HPI Impression: Non-small cell carcinoma of the lung in the left upper lobe Plan: I reviewed with the patient and his son the changes on the recent scan. We talked about how no new abnormalities were noted in terms of malignancy. We reviewed the typical course of treatment with 4 treatments over 1 to 2 weeks. We talked about the risks and side effects both acute and long-term as well as the planning process. At this point the patient would like to proceed with treatment. Will get him scheduled for simulation and begin his treatment shortly thereafter. Signed by: 03/14/2024 9:49:54 AM <<Signature on File>> Time spent with patient:20 CPT Code: CPT Code:
== END 2024-03-24 23:59 | disposition home or self-care (01) ==
PROVIDERS: Radiology Diagnostic Radiology; PCP Family Medicine; Visit Provider Radiology Radiation Oncology
DX: Z51.0 Encounter for antineoplastic radiation therapy (principal); C34.12 Malignant neoplasm of upper lobe, left bronchus or lung
CPT/HCPCS: 71260; 77300; 77301; 77334; 77338; 77373; 77470; 82565; 84520; 99024; Q9967

== ENCOUNTER 2024-03-31 08:10 | Oncology outpatient (recurring) (ONCR) | payer MEDICARE, MEDICAID, SELFPAY ==
--- NOTE | 2024-03-31 11:20 | N.ONRD TS_ITS ---
Radiation Oncology Treatment Summary Patient: Bruce>Radha MR#: [id number] : 1955> Age: 68> Sex: Male Dictated by: Dr. Ale Bennett Date of Service: 03/31/2024 Referring Physician(s) : Diagnosis: C34.92 - Malignant neoplasm of unspecified part of left bronchus or lung, Diagnosed 03/14/2024 (Active) Radiotherapy to Date: Course: L lung, Treatment Site: LT Lung 48Gy, Ref. ID: [id number], Energy: 6X, Dose/Fx (cGy): 1,200, #Fx: 4 / 4, Dose Correction (cGy): 0,Total Dose Delivered (cGy): 4,800, Start Date: 03/22/2024, End Date: 03/31/2024, Elapsed Days: 9 Clinical Summary: The patient tolerated RT well. He feels like he has had a little more fatigue than previously. He otherwise notes no additional changes Plan: End of treatment today. Continue on the above medication until the skin reaction resolves. Follow up in one month. Signed by: Dr. Ale Bennett>03/31/2024 11:18:40 AM <<Signature on File>>
== END 2024-04-25 23:59 | disposition home or self-care (01) ==
PROVIDERS: PCP Family Medicine; Visit Provider Radiology Radiation Oncology
DX: Z51.0 Encounter for antineoplastic radiation therapy (principal); C34.12 Malignant neoplasm of upper lobe, left bronchus or lung
CPT/HCPCS: 77336; 77373; 99024

== ENCOUNTER 2024-05-05 08:15 | Oncology outpatient (recurring) (ONCR) | payer MEDICARE, MEDICAID, SELFPAY ==
--- NOTE | 2024-05-05 08:52 | ONCRAD EPV_ITS ---
Radiation Oncology Established Patient Visit Patient: Bruce Medeiros [id number] : 1955> Age: 68> Sex: Male> Dictated by: Dr. Ale Bennett Date of Service: 05/05/2024 Referring Physician(s) : Diagnosis: C34.92 - Malignant neoplasm of unspecified part of left bronchus or lung, Diagnosed 03/14/2024 (Active) Patient returns today for his 1 month follow-up after having undergone SBRT to the left upper lobe mass. Subjectively he is in good spirits. He has good appetite. He has occasional pain which just last for a minute or 2 the left anterior chest. There is no pain with palpation. Does not happen every day. Seems like is very sporadic. He otherwise has noticed no problems or changes. Respiratory status remains good. He is getting around well. His fatigue level remained stable. Radiotherapy to Date: Course: L lung, Treatment Site: LT Lung 48Gy, Ref. ID: [id number], Energy: 6X, Dose/Fx (cGy): 1,200, #Fx: 4 / 4, Dose Correction (cGy): 0, Total Dose Delivered (cGy): 4,800, Start Date: 03/22/2024, End Date: 03/31/2024, Elapsed Days: 9 Current History: Current Medications: Allergies: Current Complaints / Review of Systems: . Vital Signs: Performed on 05/05/2024 8:31 AM BMI - 22.412 kg/m2, Height - 68 in, Weight - 147.4 lbs, Temperature - 96.7 f, Pulse - 75 /min, Respiration - 18 /min, O2 Sat - 98 %, Pain - 3, Fatigue - 0 and BP - 96/ 57 mm(hg)(/low). Physical Exam: General: Alert and oriented x 3. No acute distress. HEENT: Normocephalic, atraumatic. Extraocular Movements Intact: Pupils Equal, Round, Reactive to Light, sclera clear. LUNGS: Respiratory rate is regular and nonlabored. HEART: Regular rate and rhythm, Performance Status: 90 Lab: None pending. Pathology: Primary, c34.92 - malignant neoplasm of unspecified part of left bronchus or lung, Diagnosed 03/14/2024 (active) . Imaging: See HPI Impression: Left upper lobe mass consistent with non-small cell lung cancer Plan: At this point he is to tolerated the SBRT quite well. We talked about follow-up at this point and we will see if we can get him scheduled for a PET scan in the next 8 weeks. After that we will schedule a CT scan in 6 months. I have told him since they live so remotely and his son has to leave work to bring him that we can call him with those results. His son takes all of his phone calls which should be easy to get through to him during the workday. If they have any questions or issues that are encouraged to call. After the CT scan in 8 months I would order an additional scan which would be about a year from now and have him follow-up in person at that time. Signed by: 05/05/2024 8:51:22 AM <<Signature on File>> Time spent with patient: 15 CPT Code: CPT Code:
== END 2024-05-26 23:59 | disposition home or self-care (01) ==
PROVIDERS: PCP Family Medicine; Visit Provider Radiology Radiation Oncology
DX: Z08 Encounter for follow-up examination after completed treatment for malignant neoplasm (principal); C34.12 Malignant neoplasm of upper lobe, left bronchus or lung; Z92.3 Personal history of irradiation
CPT/HCPCS: 99024

== ENCOUNTER 2024-07-15 07:44 | Oncology outpatient (recurring) (ONCR) | payer MEDICARE, MEDICAID, SELFPAY ==
--- NOTE | 2024-07-15 08:00 | PETR_ITS ---
PROCEDURE INFORMATION: Exam: PET/CT Skull Base to Mid-thigh Exam date and time: 07/15/2024 9:28 AM Age: 69 years old Clinical indication: Condition or disease; Primary cancer: Lung cancer; Prior surgery; Surgery date: 1-6 months; Surgery type: Sbrt left lung; Additional info: S/P sbrt to L lung LABS AND CLINICAL REPORTS: Glucose: 118 mg/dl Treatment strategy for malignancy (PET staging): Restaging (PS) TECHNIQUE: Imaging protocol: Following at least four-hour fasting and following the injection of radiopharmaceutical, low dose CT images were obtained. Then, PET images were obtained. Attenuation corrected images were constructed using the CT scan. Fused images of PET and CT were reviewed. The standardized uptake values (SUV) reported below are maximum values within a region of interest, expressed in gm/ml. Exam includes orbital meatal line to mid-thigh. SUV normalization method: BodyWeight Radiopharmaceutical: 10.75 mCi F-18 FDG (Fluorodeoxyglucose), IV. Time of imaging post radiopharmaceutical administration: 47 minutes Injection site: left ac COMPARISON: 1. CT chest w con* [id number] 03/10/2024 8:11 AM 2. 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 Visualized brain has otherwise normal physiologic uptake. Pharynx: No abnormal uptake. Larynx: No abnormal uptake. Lungs, pleura and trachea: Upper lung predominant emphysematous change. Posterior left upper lobe nodule measures 1 cm on axial image 100 and shows SUV max 2.8, previously 2.4 cm in February 2024. There is also increased surrounding reticulation with low-level FDG uptake extending anteriorly just superolateral to the aortic arch, suspect radiation treatment change. Stable ggtmy-awidung-isny-left apical pleural-parenchymal scarring. Stable non FDG avid left basilar nodules, index measuring 7 x 4 mm on axial image 151. Heart: Normal physiologic uptake. Coronary arteries: Moderate coronary artery calcification. Mediastinal space: No abnormal uptake. Esophagus: Diffuse FDG uptake along the esophagus without underlying CT abnormality. Liver: No abnormal uptake. Gallbladder and biliary ducts: No abnormal uptake. Pancreas: No abnormal uptake. Spleen: No abnormal uptake. Adrenal glands: Left adrenal FDG uptake shows SUV max 4.[address] abnormality. Unremarkable right adrenal gland. Kidneys and ureters: Normal physiologic uptake. Stomach and bowel: Focal nodular soft tissue density thickening at the proximal hepatic flexure measures approximately 2 cm on axial image 178 with SUV max 14.4. Reproductive: Mild prostatomegaly. Vasculature: No abnormal uptake. Moderate systemic atherosclerotic calcification without aortic aneurysm. Lymph nodes: Prominent mediastinal and fxcs-vfykeoa-najn-right hilar lymph nodes with FDG uptake show interval slight decrease in size, stable from September 2023 PET-CT, with index subcarinal node measuring 1.4 cm in the short axis, 1.6 cm in February 2024 and 1.4 cm in September 2023. Increased FDG uptake with AP window node measuring 1.2 cm in the short axis on axial image 106 showing SUV max 7.4, nonmeasurable right hilar node showing SUV max 3.8 on axial image 112, and left hilar node showing SUV max 4.7 on axial image 119. Calcified mediastinal and bilateral hilar lymph nodes. Skeleton: No abnormal uptake in the visualized axial and appendicular skeleton. Soft tissues: Low-level lateral left 3rd and 4th intercostal FDG uptake suspected to represent postradiation change versus strain. Small fat containing umbilical and left inguinal hernias. METRICS: Mediastinal blood pool: SUV mean 2.2 Liver uptake: SUV mean 2.8 PET/PET skull to thigh SUBS [id number] IMPRESSION: 1. Compared to February 2024, decreased size left upper lobe nodule now measuring 1 cm with low-level FDG uptake. 2. Slight interval decreased size mediastinal and hilar lymphadenopathy, stable compared to September 2023, with increased FDG uptake. Although metastatic disease is a concern, could also be reactive/granulomatous. 3. Left adrenal FDG uptake without discrete underlying CT abnormality. This could represent hyperplasia, metastasis not entirely excluded. 4. Focal nodular soft tissue density thickening of the proximal hepatic flexure with avid FDG uptake suspicious for malignancy. Recommend colonoscopy.
== END 2024-07-26 23:59 | disposition home or self-care (01) ==
LOC: RAD 07:55 → ONCMED 09:32
PROVIDERS: PCP Family Medicine; Visit Provider Radiology Radiation Oncology
DX: R91.1 Solitary pulmonary nodule (principal); C34.90 Malignant neoplasm of unspecified part of unspecified bronchus or lung; R93.3 Abnormal findings on diagnostic imaging of other parts of digestive tract; E27.9 Disorder of adrenal gland, unspecified; R59.0 Localized enlarged lymph nodes; Z53.9 Procedure and treatment not carried out, unspecified reason
CPT/HCPCS: 78815; A9552

== ENCOUNTER 2024-11-21 11:06 | Outpatient (CLI) | payer MEDICARE, MEDICAID, SELFPAY ==
--- NOTE | 2024-11-21 11:12 | XRR_ITS ---
PROCEDURE INFORMATION: Exam: XR Right Knee Exam date and time: 11/21/2024 11:32 AM Age: 69 years old Clinical indication: Pain; Knee; Bilateral; Additional info: Knee pain TECHNIQUE: Imaging protocol: Radiologic exam of the right knee. Views: 3 views. COMPARISON: No relevant prior studies available. FINDINGS: Bones/joints: Normal. Soft tissues: Normal. XR/XR knee RT 3V* [id number] IMPRESSION: No acute findings.
--- NOTE | 2024-11-21 11:12 | XRR_ITS ---
PROCEDURE INFORMATION: Exam: XR Left Knee Exam date and time: 11/21/2024 11:32 AM Age: 69 years old Clinical indication: Pain; Knee; Bilateral; Additional info: Knee pain TECHNIQUE: Imaging protocol: Radiologic exam of the left knee. Views: 3 views. COMPARISON: No relevant prior studies available. FINDINGS: Bones/joints: Normal. Soft tissues: Normal. XR/XR knee LT 3V* [id number] IMPRESSION: No acute findings.
== END 2024-11-21 11:07 | disposition home or self-care (01) ==
LOC: RAD 11:09
PROVIDERS: PCP Family Medicine; Visit Provider Family Medicine
DX: M25.569 Pain in unspecified knee (principal)
CPT/HCPCS: 73562

== ENCOUNTER → 2024-11-30 15:09 | Outpatient (BNVA) | payer MEDICARE, MEDICAID, SELFPAY | PROVIDERS: PCP Family Medicine; Visit Provider Specialist | DX: G40.109 Localization-related (focal) (partial) symptomatic epilepsy and epileptic syndromes with simple partial seizures, not intractable, without status epilepticus (principal); F41.9 Anxiety disorder, unspecified; F32.A Depression, unspecified | CPT/HCPCS: 99214 ==

== ENCOUNTER → 2024-12-05 07:53 | Outpatient (BNVA) | payer MEDICARE, MEDICAID, SELFPAY | PROVIDERS: PCP Family Medicine; Visit Provider Orthopaedic Surgery | DX: M25.561 Pain in right knee (principal); M25.562 Pain in left knee; G89.29 Other chronic pain | CPT/HCPCS: 99204 ==

== ENCOUNTER 2024-12-26 08:12 | Outpatient (RCR) | payer MEDICARE, MEDICAID, SELFPAY | END 2025-01-16 09:32 | disposition home or self-care (01) | LOC: SPT 08:12 | PROVIDERS: Visit Provider Orthopaedic Surgery | DX: M25.561 Pain in right knee (principal); M25.562 Pain in left knee | CPT/HCPCS: 97110; 97161; 97530 ==

== ENCOUNTER → 2025-01-16 10:35 | Outpatient (BNVA) | payer MEDICARE, MEDICAID, SELFPAY | PROVIDERS: PCP Specialist; Visit Provider Orthopaedic Surgery | DX: M79.604 Pain in right leg (principal); M79.605 Pain in left leg | CPT/HCPCS: 99213 ==

== ENCOUNTER 2025-01-30 07:36 | Outpatient (CLI) | payer MEDICARE, MEDICAID, SELFPAY ==
--- NOTE | 2025-01-30 08:15 | CTR_ITS ---
PROCEDURE INFORMATION: Exam: CT Chest With Contrast; Diagnostic Exam date and time: 01/30/2025 8:26 AM Age: 69 years old Clinical indication: Initial staging oncological exam. Tumor/polyp/nodule location - known left upper lobe pulmonary neoplasm now measuring 2.2 x 2.4 x 2.6 cm. Condition or disease; Lung condition and disease; Cancer of the lung; Unspecified; Additional info: Lung cancer TECHNIQUE: Imaging protocol: Diagnostic computed tomography of the chest with contrast. Radiation optimization: All CT scans at this facility use at least one of these dose optimization techniques: automated exposure control; mA and/or kV adjustment per patient size (includes targeted exams where dose is matched to clinical indication); or iterative reconstruction. Contrast material: OMNI 350; Contrast volume: 100 ml; Contrast route: INTRAVENOUS (IV); COMPARISON: PT PET skull to thigh SUBS [id number] 07/15/2024 9:28 AM RADIATION DOSE METRICS: Total DLP (mGy-cm): 313.34 FINDINGS: Lungs: Subsegmental atelectasis of the lung bases. Areas of bandlike opacity and nodules in the left lung base which may reflect some infiltrates versus recurrent neoplasm. One of the nodules along the anterolateral margin of this area have been present compared to prior examination.Similar ground-glass and linear opacities of the left upper lung related to posttreatment changes. In this vicinity there is also a similar 1 cm nodule. Upper lung predominant emphysematous changes. Pleural spaces: Small left-sided pleural effusion. Biapical pleural-parenchymal scarring. Heart: Unremarkable. No cardiomegaly. No pericardial effusion. Coronary arteries: Moderate coronary artery calcifications. Coronary artery calcifications are present. Lymph nodes: Small mediastinal and hilar lymph nodes are again noted. Vasculature: Atherosclerotic narrowing of the celiac artery ostia. Atherosclerosis of the thoracic aorta without evidence of aneurysm or dissection. No pulmonary artery embolism. Bones/joints: Similar T12 compression deformity. Soft tissues: Unremarkable. CT/CT chest w con* [id number] IMPRESSION: 1. Similar left upper lobe nodule with surrounding ground-glass and interstitial changes related to a known pulmonary nodule with surrounding posttreatment changes. 2. There is left lung base interstitial thickening and nodularity which is become more prominent compared to prior examinations. Infectious/inflammatory etiologies are concern versus recurrent neoplasm. One of the nodules along the anterolateral margin of this area have been present compared to prior examination. 3. Small left-sided pleural effusion. 4. Similar mediastinal and hilar lymph nodes. COMMENTS: The presence of pulmonary emphysema on CT is an independent risk factor for lung cancer. In the absence of a history or active diagnosis of lung cancer, it is recommended that this patient with emphysema be evaluated for enrollment in a low dose CT lung cancer screening program.
[2025-01-30 08:18] LABS: Blood Urea Nitrogen 7 mg/dL (8-23)
[2025-01-30] MEDS: iohexol 350 mg/mL 500 mL Btl (per mL) IV (08:31)
== END 2025-01-30 07:37 | disposition home or self-care (01) ==
LOC: RAD 07:40
PROVIDERS: Radiology Radiation Oncology; PCP Radiology Radiation Oncology; Visit Provider Radiology Radiation Oncology
DX: C34.12 Malignant neoplasm of upper lobe, left bronchus or lung (principal); J43.9 Emphysema, unspecified; J90 Pleural effusion, not elsewhere classified
CPT/HCPCS: 71260; 82565; 84520